=== PATIENT | male | born 1960 | race Caucasian/White ===

== ENCOUNTER 2020-11-06 14:34 | Emergency (ER) | payer BC ==
[2020-11-06] MEDS ORDERED: Bupivacaine 0.5% 10 ML VIAL ONE (15:22)
[2020-11-06] MEDS ORDERED: Boostrix 0.5 ML (Tdap) VIAL ONE (15:56)
== END 2020-11-06 16:10 | disposition home or self-care (01) ==
LOC: BURERS 14:34
DX: S52.532A Colles' fracture of left radius, initial encounter for closed fracture (principal); E11.9 Type 2 diabetes mellitus without complications; E78.2 Mixed hyperlipidemia; F17.220 Nicotine dependence, chewing tobacco, uncomplicated; Z79.899 Other long term (current) drug therapy; Z23 Encounter for immunization; W11.XXXA Fall on and from ladder, initial encounter
CPT/HCPCS: 25605; 90471; 90715; J3490

== ENCOUNTER 2024-04-12 14:58 | Inpatient (IN) | payer BC ==
[2024-04-12 19:30] VITALS: BMI 18.8
[2024-04-12] MEDS ORDERED: Bisacodyl 5 MG TAB PO PRN (20:13)
[2024-04-12] MEDS ORDERED: Senokot S 8.6-50 MG TAB PO PRN (20:13)
[2024-04-12] MEDS: Atorvastatin Calcium 40 MG TAB PO SCH (22:12)
[2024-04-12] MEDS: Folic Acid 1 MG TAB PO SCH (22:12)
[2024-04-12] MEDS: Famotidine 20 MG TAB PO SCH (22:12)
[2024-04-12] MEDS: Multivit, Therapeutic 1 TAB PO SCH (22:12)
[2024-04-12] MEDS: Tamsulosin HCl 0.4 MG CAP PO SCH (22:12)
[2024-04-12] MEDS: Metoprolol Tartrate 25 MG TAB PO SCH (22:12)
[2024-04-12] MEDS: AMOXicillin 250 MG CAP PO SCH (22:12)
[2024-04-13 08:18] VITALS: BMI 18.8
[2024-04-13] MEDS: Finasteride 5 MG TAB PO SCH (09:38)
[2024-04-13] MEDS: Ascorbic Acid 500 mg Chewable Tablet PO SCH (09:38)
[2024-04-13] MEDS: Cyanocobalamin (Vitamin B-12) 1,000 MCG TAB PO SCH (09:38)
[2024-04-13] MEDS: Ferrous Sulfate 325 MG TAB PO SCH (09:38)
[2024-04-13] MEDS: Polyethylene Glycol 3350 17 GM Packet PO SCH (09:38)
[2024-04-14 06:22] LABS: #Basophils 0.1 thou/uL (0.0-0.2); #Eosinophils 0.1 thou/uL (0.0-0.7); #Lymphocytes 1.7 thou/uL (1.20-3.40); #Monocytes 0.6 thou/uL (0.11-0.59); #Neutrophils 2.9 thou/uL (1.40-6.50); %Eosinophils 1.7 % (0.0-10.0); %Lymphocytes 31.2 % (21.0-51.0); %Monocytes 11.5 % (0.0-10.0); %Neutrophils 53.7 % (42.0-75.0); Hematocrit 25.9 % (42.0-52.0); Hemoglobin 8.3 g/dL (14.0-18.0); Mean Corpuscular Hemoglobin 28.5 pg (27.0-31.0); Mean Corpuscular Volume 89.2 fl (78.0-98.0); Platelet Count 932 10x3/uL (130-400); RBC Distribution Width 13.7 % (11.5-14.5); White Blood Cell (WBC) Count 5.4 10x3/uL (4.8-10.8)
[2024-04-14 06:37] LABS: Anion Gap 13 mmol/L (10-20); BUN (Urea Nitrogen) 6 mg/dL (8.4-25.7); Calc. Creatinine Clearance 91 mL/min (70-130); Calcium 9.2 mg/dL (7.8-10.44); Carbon Dioxide 22 mmol/L (23-31); Chloride 112 mmol/L (98-107); Estimated GFR 102; Glucose 93 mg/dL (80-115); Potassium 3.8 mmol/L (3.5-5.1); Sodium 143 mmol/L (136-145)
[2024-04-14] MEDS: Nystatin Powder 15 GM BOT TOP PRN (21:22)
[2024-04-15] MEDS: Zolpidem Tartrate 5 MG TAB PO SCH (22:08)
[2024-04-16] MEDS: Ondansetron ODT 4 MG TAB PO PRN (14:20)
[2024-04-18] MEDS: Saccharomyces boulardii 250 MG CAP PO SCH (08:22)
[2024-04-26 05:22] LABS: #Basophils 0.1 thou/uL (0.0-0.2); #Eosinophils 0.1 thou/uL (0.0-0.7); #Lymphocytes 1.5 thou/uL (1.20-3.40); #Monocytes 0.7 thou/uL (0.11-0.59); #Neutrophils 2.7 thou/uL (1.40-6.50); %Basophils 1.1 % (0.0-1.0); %Eosinophils 2.9 % (0.0-10.0); %Lymphocytes 28.5 % (21.0-51.0); %Monocytes 14.3 % (0.0-10.0); %Neutrophils 53.2 % (42.0-75.0); Hematocrit 28.7 % (42.0-52.0); Hemoglobin 9.4 g/dL (14.0-18.0); Mean Corpuscular HGB CONC 32.7 g/dL (32.0-36.0); Mean Corpuscular Hemoglobin 28.7 pg (27.0-31.0); Mean Corpuscular Volume 87.8 fl (78.0-98.0); Mean Platelet Volume 7.3 fL (7.4-10.4); Platelet Count 315 10x3/uL (130-400); RBC Distribution Width 13.3 % (11.5-14.5); Red Blood Cell (RBC) Count 3.27 mill/uL (4.70-6.10); White Blood Cell (WBC) Count 5.1 10x3/uL (4.8-10.8)
[2024-04-26 05:49] LABS: Anion Gap 12 mmol/L (10-20); BUN (Urea Nitrogen) 7 mg/dL (8.4-25.7); Calc. Creatinine Clearance 91 mL/min (70-130); Calcium 8.9 mg/dL (7.8-10.44); Carbon Dioxide 25 mmol/L (23-31); Chloride 108 mmol/L (98-107); Estimated GFR 102; Glucose 93 mg/dL (80-115); Potassium 3.7 mmol/L (3.5-5.1); Sodium 141 mmol/L (136-145)
[2024-04-26] MEDS: Acetaminophen 325 MG TAB PO PRN (14:20)
[2024-05-03 05:18] VITALS: BP 128/60; TEMP 97.7
== END 2024-05-03 11:10 | disposition hospice, home (50) | DRG 945 ==
LOC: BURMED 18:11
PROVIDERS: ADMIT Family Medicine; ATTEND Family Medicine
PROC: F07Z9ZZ Gait Training/Functional Ambulation Treatment (ICD-10-PCS; principal; 2024-04-12)
DX: R53.1 Weakness (principal); Z68.1 Body mass index [BMI] 19.9 or less, adult; R53.81 Other malaise; I10 Essential (primary) hypertension; E11.9 Type 2 diabetes mellitus without complications; E78.5 Hyperlipidemia, unspecified; C44.42 Squamous cell carcinoma of skin of scalp and neck; D64.9 Anemia, unspecified; R62.7 Adult failure to thrive; N40.1 Benign prostatic hyperplasia with lower urinary tract symptoms; R33.8 Other retention of urine; Z98.890 Other specified postprocedural states; Z87.891 Personal history of nicotine dependence; Z79.899 Other long term (current) drug therapy; Z90.49 Acquired absence of other specified parts of digestive tract; S06.5XAD Traumatic subdural hemorrhage with loss of consciousness status unknown, subsequent encounter
CPT/HCPCS: 36415; 36416; 80048; 85025; Q0162